=== PATIENT | male | born 1965 ===

== ENCOUNTER 2020-04-07 05:47 | Emergency (ER) | payer BC ==
[2020-04-07] MEDS ORDERED: HYDROCODONE/APAP 7.5/325 MG TAB ONE (06:46)
[2020-04-07 07:04] LABS: Absolute Lymphocytes (CBC) 1.4 K/uL (0.7-4.9); Basophils % 0.5 % (0-1.3); Hematocrit 38.7 % (39.6-49.0); Lymphocytes % 12.9 % (15.3-44.8); MPV 12.8 fL (7.6-11.3); RBC Red Blood Cell Count 4.53 M/uL (4.33-5.43)
[2020-04-07 07:27] LABS: C-Reactive Protein 63.8 mg/L (<3.00); Potassium 4.1 mmol/L (3.5-5.1)
--- NOTE | 2020-04-07 07:34 | ER ---
Nurse's Notes [facility] Name: Gatito Holcomb Age: 54 yrs Sex: Male : 1965 Arrival Date: 04/07/2020 Time: 05:54 Bed 8 Private MD: Diagnosis: Pain in left foot Presentation: 04/07 06:00 Chief complaint: Patient states: The topside and outer part of my left foot has been sg really painful last night and this morning, was unable to sleep due to the pain, pt denies injury or trauma. States does get out of a water bed each morning, but unsure if that would be the cause. Coronavirus screen: Client denies travel out of the [place] in the last 14 days. At this time, the client does not indicate any symptoms associated with coronavirus-19. Ebola Screen: Patient negative for fever greater than or equal to 101.5 degrees Fahrenheit, and additional compatible Ebola Virus Disease symptoms Patient denies exposure to infectious person. Patient denies travel to an Ebola-affected area in the 21 days before illness onset. No symptoms or risks identified at this time. Initial Sepsis Screen: Does the patient meet any 2 criteria? No. Patient's initial sepsis screen is negative. Does the patient have a suspected source of infection? No. Patient's initial sepsis screen is negative. Risk Assessment: Do you want to hurt yourself or someone else? Patient reports no desire to harm self or others. Onset of symptoms was April 07, 2020. Care prior to arrival: None. Transition of care: patient was not received from another setting of care. 06:00 Method Of Arrival: Wheelchair sg 06:00 Acuity: BILLY 4 sg Triage Assessment: 06:00 General: Appears in no apparent distress. obese, well developed, well nourished, sg Behavior is calm, cooperative, appropriate for age. Pain: Complains of pain in lateral side of left foot and dorsum of left foot Quality of pain is described as sharp, throbbing. Cardiovascular: Patient's skin is warm and dry. Respiratory: Airway is patent Respiratory effort is even, unlabored, Respiratory pattern is regular, symmetrical. GI: Abdomen is round non-distended, obese, Reports tolerance of fluids, tolerance of food. : No signs and/or symptoms were reported regarding the genitourinary system. Derm: Skin is pink, warm \T\ dry. Musculoskeletal: Circulation, motion, and sensation intact. Range of motion: intact in all extremities. Historical: - Allergies: 06:11 No Known Allergies; sg - PMHx: 06:11 None; sg - PSHx: 06:11 None; sg - Immunization history:: Adult Immunizations up to date. - Social history:: Smoking status: Patient denies any tobacco usage or history of. Screenin:27 Abuse screen: Denies threats or abuse. Denies injuries from another. Nutritional rr5 screening: No deficits noted. Tuberculosis screening: No symptoms or risk factors identified. Fall Risk None identified. Total Clark Fall Scale indicates No Risk (0-24 pts). Assessment: 06:25 General: Appears in no apparent distress. comfortable, Behavior is calm, cooperative, rr5 appropriate for age. Pain: Complains of pain in left foot Pain currently is 3 out of 10 on a pain scale. Quality of pain is described as aching, Pain began gradually. Neuro: Level of Consciousness is awake, alert, obeys commands, Oriented to person, place, time. Cardiovascular: Capillary refill < 3 seconds Patient's skin is warm and dry. Respiratory: Airway is patent Respiratory effort is even, unlabored, Respiratory pattern is regular, symmetrical. GI: No signs and/or symptoms were reported involving the gastrointestinal system. : No signs and/or symptoms were reported regarding the genitourinary system. EENT: No signs and/or symptoms were reported regarding the EENT system. Derm: Skin is intact, is healthy with good turgor, Skin temperature is warm. Musculoskeletal: Capillary refill < 3 seconds, Swelling present in left foot warm to touch left foot. Vital Signs: 06:12 Weight 185.52 kg (R); Height 5 ft. 10 in. (177.80 cm); Pain 8/10; sg 06:25 BP 128 / 61; Pulse 87; Resp 19; Temp 98.4; Pulse Ox 99% ; rr5 06:12 Body Mass Index 58.68 (185.52 kg, 177.80 cm) ED Course: 05:54 Patient arrived in ED. ag3 06:00 Arm band placed on. sg 06:07 Ezequiel Joans RN is Primary Nurse. rr5 06:10 Triage completed. sg 06:27 Nain Malave MD is Attending Physician. pkl 06:28 Patient has correct armband on for positive identification. Bed in low position. Call rr5 light in reach. 06:47 XRAY Foot LEFT 3 View In Process Unspecified. EDMS 06:59 Inserted saline lock: 20 gauge in right forearm, using aseptic technique. Blood rr5 collected. 07:02 Attending Physician role handed off by Nain Malave MD rn 07:02 Taran Muller MD is Attending Physician. rn 07:50 No provider procedures requiring assistance completed. IV discontinued, intact, em bleeding controlled, No redness/swelling at site. Pressure dressing applied. 07:57 Ortho shoe applied to left foot. em Administered Medications: 06:35 Drug: [place] (7.5 mg-325 mg) 1 tabs {Note: rass 0.} Route: PO; ea 07:58 Follow up: Response: No adverse reaction; Marked relief of symptoms; Pain is decreased; em RASS: Alert and Calm (0) Outcome: 07:33 Discharge ordered by MD. rn 07:50 Discharged to home ambulatory, with family. em 07:50 Condition: good 07:50 Discharge instructions given to patient, Instructed on discharge instructions, follow up and referral plans. medication usage, Demonstrated understanding of instructions, follow-up care, medications, Prescriptions given X 2. 07:59 Patient left the ED. em Signatures: Dispatcher [employer] EDMS Harlan Abdalla RN RN sg Lam, Pin, MD MD pkl Munoz, Edgar, RN RN em Nieto, Roman, MD MD rn Antunez, Elena, RN RN ea Gomez, Alice ag3 Roque, Raymond RN RN rr5 Corrections: (The following items were deleted from the chart) 06:41 06:41 Reassessment: Patient appears in no apparent distress at this time. Patient is rr5 alert, oriented x 3, equal unlabored respirations, skin warm/dry/pink. seen and examined by dr. singh at bedside rr5 07:01 06:25 Musculoskeletal: Capillary refill < 3 seconds, Swelling present in left foot rr5 rr5 07:01 06:59 Inserted saline lock: 20 gauge in left forearm, using aseptic technique. Blood rr5 collected. rr5 07:57 07:50 Patient did not have IV access during this emergency room visit. em em
--- NOTE | 2020-04-07 07:34 | EDPHYS ---
Physician Documentation [facility] Name: Gatito Holcomb Age: 54 yrs Sex: Male : 1965 Arrival Date: 04/07/2020 Time: 05:54 Bed 8 Private MD: ED Physician Taran Muller HPI: 04/07 06:33 This 54 yrs old Male presents to ER via Wheelchair with complaints of Foot Pain. pkl 06:33 The patient presents with pain, that is acute. The complaints affect the left foot. pkl Context: Mechanism of Injury: Unknown the patient can partially bear weight, can ambulate using a cane. Onset: The symptoms/episode began/occurred 2 day(s) ago. Associated signs and symptoms: The patient has no apparent associated signs or symptoms. Historical: - Allergies: 06:11 No Known Allergies; sg - PMHx: 06:11 None; sg - PSHx: 06:11 None; sg - Immunization history:: Adult Immunizations up to date. - Social history:: Smoking status: Patient denies any tobacco usage or history of. ROS: 06:33 MS/extremity: Positive for pain, swelling, tenderness, of the dorsum of left foot and pkl lateral side of left foot. 06:33 Eyes: Negative for injury, pain, redness, and discharge, ENT: Negative for injury, pain, and discharge, Neck: Negative for injury, pain, and swelling, Cardiovascular: Negative for chest pain, palpitations, and edema, Respiratory: Negative for shortness of breath, cough, wheezing, and pleuritic chest pain, Abdomen/GI: Negative for abdominal pain, nausea, vomiting, diarrhea, and constipation, Back: Negative for injury and pain, : Negative for injury, bleeding, discharge, and swelling, Skin: Negative for injury, rash, and discoloration, Neuro: Negative for headache, weakness, numbness, tingling, and seizure. Exam: 06:33 Head/Face: Normocephalic, atraumatic. Eyes: Pupils equal round and reactive to light, pkl extra-ocular motions intact. Lids and lashes normal. Conjunctiva and sclera are non-icteric and not injected. Cornea within normal limits. Periorbital areas with no swelling, redness, or edema. ENT: Nares patent. No nasal discharge, no septal abnormalities noted. Tympanic membranes are normal and external auditory canals are clear. Oropharynx with no redness, swelling, or masses, exudates, or evidence of obstruction, uvula midline. Mucous membranes moist. Neck: Trachea midline, no thyromegaly or masses palpated, and no cervical lymphadenopathy. Supple, full range of motion without nuchal rigidity, or vertebral point tenderness. No Meningismus. Chest/axilla: Normal chest wall appearance and motion. Nontender with no deformity. No lesions are appreciated. Cardiovascular: Regular rate and rhythm with a normal S1 and S2. No gallops, murmurs, or rubs. Normal PMI, no JVD. No pulse deficits. Respiratory: Lungs have equal breath sounds bilaterally, clear to auscultation and percussion. No rales, rhonchi or wheezes noted. No increased work of breathing, no retractions or nasal flaring. Abdomen/GI: Soft, non-tender, with normal bowel sounds. No distension or tympany. No guarding or rebound. No evidence of tenderness throughout. Back: No spinal tenderness. No costovertebral tenderness. Full range of motion. Skin: Warm, dry with normal turgor. Normal color with no rashes, no lesions, and no evidence of cellulitis. Neuro: Awake and alert, GCS 15, oriented to person, place, time, and situation. Cranial nerves II-XII grossly intact. Motor strength 5/5 in all extremities. Sensory grossly intact. Cerebellar exam normal. Normal gait. 06:33 Musculoskeletal/extremity: Extremities: grossly normal except: noted in the dorsum of left foot and lateral side of left foot: pain, swelling, tenderness. Vital Signs: 06:12 Weight 185.52 kg (R); Height 5 ft. 10 in. (177.80 cm); Pain 8/10; sg 06:25 BP 128 / 61; Pulse 87; Resp 19; Temp 98.4; Pulse Ox 99% ; rr5 06:12 Body Mass Index 58.68 (185.52 kg, 177.80 cm) sg MDM: 06:27 Patient medically screened. pkl 06:40 Data reviewed: vital signs, nurses notes, radiologic studies, plain films. pkl 07:10 ED course: Signed out to me by Dr. Malave, pending bloodwork, states xray foot looks ok, rn left foot with mild swelling, doesn't remember trauma, thinks may have sprained it getting out of waterbed. . 07:30 Differential diagnosis: fracture, sprain, arthritis, gout, cellulitis. Counseling: I rn had a detailed discussion with the patient and/or guardian regarding: the historical points, exam findings, and any diagnostic results supporting the discharge/admit diagnosis, lab results, radiology results, the need for outpatient follow up, to return to the emergency department if symptoms worsen or persist or if there are any questions or concerns that arise at home. Special discussion: I discussed with the patient/guardian in detail that at this point there is no indication for admission to the hospital. It is understood, however, that if the symptoms persist or worsen the patient needs to return immediately for re-evaluation. 07:31 ED course: Questionable irregularity base of 4th , no radiology read, possible rn fracture, will dc home with abx given swelling/pain/elevated CRP and instructions to get repeat xray. . 04/07 06:44 Order name: CBC with Diff pkl 04/07 06:44 Order name: Chem 7; Complete Time: 07:29 pkl 04/07 06:19 Order name: XRAY Foot LEFT 3 View sg 04/07 06:44 Order name: CRP; Complete Time: 07:29 pkl 04/07 06:44 Order name: Sed Rate pkl 04/07 07:34 Order name: Splint: post-op shoe; Complete Time: 07:57 rn Administered Medications: 06:35 Drug: [place] (7.5 mg-325 mg) 1 tabs {Note: rass 0.} Route: PO; ea 07:58 Follow up: Response: No adverse reaction; Marked relief of symptoms; Pain is decreased; em RASS: Alert and Calm (0) Disposition: 04/07/20 07:33 Discharged to Home. Impression: Pain in left foot. - Condition is Stable. - Discharge Instructions: Foot Pain. - Prescriptions for Clindamycin HCl 300 mg Oral Capsule - take 1 capsule by ORAL route every 6 hours for 10 days; 40 capsule. Ultram 50 mg Oral Tablet - take 1 tablet by ORAL route every 6 hours As needed; 15 tablet. - Medication Reconciliation Form, Thank You Letter, Antibiotic Education, Prescription Opioid Use form. - Follow up: Private Physician; When: As needed; Reason: Recheck today's complaints, Re-evaluation by your physician. - Problem is new. - Symptoms are unchanged. Signatures: Dispatcher [employer] Harlan Gallardo, RN Nain Lucero MD MD pkl Munoz, Edgar, RN RN em Nieto, Roman, MD MD rn Antunez, Elena, RN RN ea Corrections: (The following items were deleted from the chart) 07:59 07:33 04/07/2020 07:33 Discharged to Home. Impression: Pain in left foot. Condition is em Stable. Forms are Medication Reconciliation Form, Thank You Letter, Antibiotic Education, Prescription Opioid Use. Follow up: Private Physician; When: As needed; Reason: Recheck today's complaints, Re-evaluation by your physician. Problem is new. Symptoms are unchanged. rn
--- NOTE | 2020-04-07 08:48 | RAD REPORT ---
EXAM DESCRIPTION: RAD - Foot Left 3 View - 04/07/2020 6:47 am CLINICAL HISTORY: PAIN COMPARISON: No comparisons FINDINGS: Mild soft tissue swelling is seen along the dorsum of the foot. Small plantar calcaneal sp ur. No fracture or dislocation.
[2020-04-07 21:49] VITALS: BP 128/61; TEMP 98.4; O2SAT 99
== END 2020-04-07 07:59 | disposition home or self-care (01) ==
LOC: ER 05:47
DX: M79.672 Pain in left foot (principal)
CPT/HCPCS: 36415; 80048; 85025; 85652; 86140; 99284